=== PATIENT | female | born 1970 | race Caucasian/White ===

== ENCOUNTER 2020-03-24 18:25 | Emergency (ER) | payer OTHER, SELFPAY ==
[~2020-03-24] VITALS: Ht 162.6 cm; Wt 68.5 kg
[~2020-03-24 18:25] MED LIST: NO MEDS
[2020-03-24] MEDS ORDERED: KETOROLAC TROMETHAMINE INJ 30 MG/ML VIAL ONE (18:48)
[2020-03-24] MEDS ORDERED: ACETAMINOPHEN ES 500 MG TABLET ONE (18:48)
[2020-03-24] MEDS: ACETAMINOPHEN ES 500 MG TABLET PO ONE (19:02)
[2020-03-24] MEDS: KETOROLAC TROMETHAMINE INJ 60 MG/2 ML VIAL IM ONE (19:02)
[2020-03-24] MEDS ORDERED: DIAZEPAM 5 MG TABLET ONE (20:15)
[2020-03-24] MEDS: DIAZEPAM 10 MG TABLET PO ONE (20:18)
[2020-03-24 20:59] VITALS: BP 129/88
== END 2020-03-24 21:00 | disposition home or self-care (01) ==
LOC: ER 18:30
DX: G44.209 Tension-type headache, unspecified, not intractable (principal); M79.18 Myalgia, other site; R50.9 Fever, unspecified; Z98.890 Other specified postprocedural states; Z20.828 Contact with and (suspected) exposure to other viral communicable diseases
CPT/HCPCS: 96372; 99283; J1885; U0003